=== PATIENT | female | born 1995 | race Two or more races ===

== ENCOUNTER 2016-09-15 00:36 | Emergency (ER) | payer SELFPAY ==
[2016-09-15] MEDS ORDERED: NORMAL SALINE 1000 ML 1,000 ML IV ONE (01:45)
--- NOTE | 2016-09-15 02:07 | ER Document Report ---
ED GI/ - General Mode of Arrival: Ambulatory Information source: Patient TRAVEL OUTSIDE OF THE [place] IN LAST 30 DAYS: No - HPI Patient complains to provider of: Abdominal pain Onset: Other - 09/13/2016 Timing/Duration: Intermittent, Worse Location: Epigastric, RUQ Associated symptoms: Nausea, Vomiting. denies: Dysuria, Radiates to back <EMMY CLARK - Last Filed: 09/15/16 02:20> <RONY GTZ - Last Filed: 09/15/16 05:14> - General Chief Complaint: Abdominal Pain Stated Complaint: ABDOMINAL PAIN Notes: Patient is a 21-year-old female presenting to the emergency department concerned of epigastric and right upper quadrant abdominal pain which has been intermittent for the past 2 days. Patient states that the pain normally comes in 30 minute episodes. Patient states tonight the pain began at approximately 2000, but never resolved. Patient states she was at a bonfire and had a s'more , and subsequently became nauseous and vomited. She was told that she had a gallstone while she was (delivered Apr 2016), but never had it rechecked after the . Patient denies any back pain, dysuria, or suprapubic pain. (EMMY CLARK) - Related Data Allergies/Adverse Reactions: No Known Allergies Allergy (Verified 04/18/16 21:33) Past Medical History - General Information source: Patient - Social History Smoking Status: Never Smoker Chew tobacco use (# tins/day): No Frequency of alcohol use: None Drug Abuse: None Family History: Reviewed & Not Pertinent Patient has suicidal ideation: No Patient has homicidal ideation: No Renal/ Medical History: Denies: Hx Peritoneal Dialysis - Immunizations Immunizations up to date: Yes Hx Diphtheria, Pertussis, Tetanus Vaccination: Yes <EMMY CLARK - Last Filed: 09/15/16 02:20> Review of Systems - Review of Systems Constitutional: No symptoms reported EENT: No symptoms reported Cardiovascular: No symptoms reported Respiratory: No symptoms reported Gastrointestinal: See HPI, Abdominal pain, Nausea, Vomiting Genitourinary: No symptoms reported Female Genitourinary: No symptoms reported Musculoskeletal: No symptoms reported Skin: No symptoms reported Hematologic/Lymphatic: No symptoms reported Neurological/Psychological: No symptoms reported -: Yes All other systems reviewed and negative <EMMY CLARK - Last Filed: 09/15/16 02:20> Physical Exam - Vital signs Interpretation: Normal - General General appearance: Alert - HEENT Head: Normocephalic, Atraumatic Eyes: Normal Pupils: PERRL - Respiratory Respiratory status: No respiratory distress Chest status: Nontender Breath sounds: Normal Chest palpation: Normal - Cardiovascular Rhythm: Regular Heart sounds: Normal auscultation Murmur: No - Abdominal Distension: No distension Bowel sounds: Normal Tenderness: Tender - Epigastric and RUQ tenderness to palpation.. No: Guarding , Rebound Organomegaly: No organomegaly - Back Back: Normal, Nontender - Extremities General upper extremity: Normal inspection, Nontender, Normal color, Normal ROM , Normal temperature General lower extremity: Normal inspection, Nontender, Normal color, Normal ROM , Normal temperature - Neurological Neuro grossly intact: Yes Cognition: Normal [place] Coma Scale Eye Opening: Spontaneous Sammi Coma Scale Verbal: Oriented [place] Coma Scale Motor: Obeys Commands Sammi Coma Scale Total: 15 Speech: Normal - Psychological Associated symptoms: Normal affect, Normal mood - Skin Skin Temperature: Warm Skin Moisture: Dry Skin Color: Normal <EMMY CLARK - Last Filed: 09/15/16 02:20> Course <EDUARDOEMMY - Last Filed: 09/15/16 02:20> - Laboratory Result Diagrams: 09/15/16 03:05 09/15/16 03:05 - Diagnostic Test Radiology reviewed: Reports reviewed <RONY GTZ - Last Filed: 09/15/16 05:14> - Re-evaluation Re-evalutation: 09/15/16 05:13 Patient with gallstones on ultrasound. No evidence for infection. Patient does have elevation of her LFTs. Patient is feeling better after fluids. Discuss consultation with surgeon and keeping the patient in the hospital for her symptoms. Patient states that she needs to get home to her 4-month-old would prefer to follow-up as an outpatient. Patient is able to take by mouth. Patient is advised to return immediately if she has any worsening or concerning symptoms including vomiting, abdominal pain and fever, or any other concerns. Understands agrees with plan. (RONY GTZ) - Vital Signs Vital signs: Temp Pulse Resp BP Pulse Ox 97.4 F 67 17 106/63 100 09/15/16 04:59 09/15/16 04:59 09/15/16 04:59 09/15/16 04:59 09/15/16 04:59 - Laboratory Laboratory results interpreted by me: 09/15/16 09/15/16 09/15/16 03:05 03:05 03:05 Seg Neutrophils % 79.9 H Creatinine 0.49 L Total Bilirubin 1.5 H AST 350 H ALT 198 H Alkaline Phosphatase 242 H Total Protein 8.3 H Urine Protein 30 H Urine Ketones 80 H Urine Urobilinogen 2.0 H Discharge <EMMY CLARK - Last Filed: 09/15/16 02:20> <RONY GTZ - Last Filed: 09/15/16 05:14> - Discharge Clinical Impression: Gallstones, Biliary colic Condition: Stable Disposition: HOME, SELF-CARE Instructions: Gallbladder Disease ([facility]), Low-Fat Diet ([facility]) Prescriptions: Ondansetron [Zofran Odt 4 mg Tablet] 1 - 2 tab PO Q4H PRN #15 tab.rapdis PRN Reason: For Nausea/Vomiting Oxycodone HCl/Acetaminophen [Percocet 5-325 mg Tablet] 1 - 2 tab PO Q4H PRN #15 tablet PRN Reason: Referrals: GAY SAPP MD [ACTIVE STAFF] - Follow up as needed Scribe Attestation: 09/15/16 05:14 I personally performed the services described in the documentation, reviewed and edited the documentation which was dictated to the scribe in my presence, and it accurately records my words and actions. (RONY GTZ) Scribe Documentation - Scribe Written by Scribe:: Emmy Clark 09/15/2016 0210 acting as scribe for :: Pamela <EMMY CLARK - Last Filed: 09/15/16 02:20>
[2016-09-15 03:16] LABS: ABSOLUTE MONOCYTES (AUTO) 0.4 10^3/uL (0.1-1.4); ABSOLUTE NEUT (AUTO) 5.8 10^3/uL (1.7-8.2); BASOPHILS % (AUTO) 0.3 % (0-2); EOSINOPHILS % (AUTO) 0.2 % (0-6); HEMATOCRIT 37.2 % (36.0-47.0); HGB HCT DIFFERENCE 1.8; LYMPHOCYTES % (AUTO) 13.7 % (13-45); MEAN CORPUSCULAR HEMOGLOBIN 30.1 pg (27.0-33.4); MEAN CORPUSCULAR HGB CONC 34.9 g/dL (32.0-36.0); MEAN CORPUSCULAR VOLUME 86 fl (80-97); MONOCYTES % (AUTO) 5.9 % (3-13); RED BLOOD COUNT 4.32 10^6/uL (3.72-5.28); RED CELL DISTRIBUTION WIDTH 13.3 % (11.5-14.0); SEGMENTED NEUTROPHILS % (AUTO) 79.9 % (42-78); WHITE BLOOD COUNT 7.3 10^3/uL (4.0-10.5)
[2016-09-15 03:18] LABS: APPEARANCE,URINE CLEAR; BILIRUBIN,URINE NEGATIVE (NEGATIVE); GLUCOSE, URINE NEGATIVE (NEGATIVE); KETONES,URINE 80 mg/dL (NEGATIVE); LEUKOCYTE ESTERASE,URINE NEGATIVE (NEGATIVE); NITRITE,URINE NEGATIVE (NEGATIVE); PROTEIN,URINE 30 mg/dL (NEGATIVE)
[2016-09-15 03:30] LABS: ALANINE AMINOTRANSFERASE 198 U/L (9-52); ALBUMIN 4.9 g/dL (3.5-5.0); ALKALINE PHOSPHATASE 242 U/L (38-126); ANION GAP 15 (5-19); ASPARTATE AMINO TRANSFERASE 350 U/L (14-36); BILIRUBIN,TOTAL 1.5 mg/dL (0.2-1.3); BLOOD UREA NITROGEN 10 mg/dL (7-20); CALCIUM 9.8 mg/dL (8.4-10.2); CARBON DIOXIDE 24 mmol/L (22-30); CHLORIDE 105 mmol/L (98-107); CREATININE RESULT 0.49 mg/dL (0.52-1.25); GLUCOSE 105 mg/dL (75-110); POTASSIUM 4.3 mmol/L (3.6-5.0); SODIUM 144.3 mmol/L (137-145); TOTAL PROTEIN 8.3 g/dL (6.3-8.2)
[2016-09-15 03:56] LABS: LIPASE 198.3 U/L (23-300)
[2016-09-15] MEDS ORDERED: 1/2 NORMAL SALINE 1,000 ML IV ONE (04:11)
[2016-09-15 05:00] VITALS: BP 106/63
== END 2016-09-15 04:59 | disposition home or self-care (01) ==
LOC: ER 00:36
DX: K80.80 Other cholelithiasis without obstruction (principal); K80.50 Calculus of bile duct without cholangitis or cholecystitis without obstruction; R10.13 Epigastric pain; R10.11 Right upper quadrant pain; R11.2 Nausea with vomiting, unspecified
CPT/HCPCS: 99284; 36415; 84702; 83690; 85025; 80053; 81001; 76705; J7030

== ENCOUNTER 2017-10-03 15:35 | Emergency (ER) | payer SELFPAY ==
[2017-10-03] MEDS ORDERED: KETOROLAC TROMETHAMINE 60 MG/2 ML SDV IM ONE (17:38)
[2017-10-03] MEDS ORDERED: ONDANSETRON 4 MG TAB.RAPDIS PO ONE (17:48)
[2017-10-03 18:12] LABS: ABSOLUTE LYMPHOCYTES (AUTO) 1.3 10^3/uL (0.5-4.7); ABSOLUTE MONOCYTES (AUTO) 0.7 10^3/uL (0.1-1.4); ABSOLUTE NEUT (AUTO) 8.1 10^3/uL (1.7-8.2); BASOPHILS % (AUTO) 0.4 % (0-2); EOSINOPHILS % (AUTO) 0.1 % (0-6); HEMOGLOBIN 14.3 g/dL (12.0-15.5); LYMPHOCYTES % (AUTO) 12.4 % (13-45); MEAN CORPUSCULAR HEMOGLOBIN 30.6 pg (27.0-33.4); MEAN CORPUSCULAR HGB CONC 34.1 g/dL (32.0-36.0); MEAN CORPUSCULAR VOLUME 90 fl (80-97); MONOCYTES % (AUTO) 6.6 % (3-13); PLATELET COUNT 372 10^3/uL (150-450); RED BLOOD COUNT 4.68 10^6/uL (3.72-5.28); RED CELL DISTRIBUTION WIDTH 13.1 % (11.5-14.0); SEGMENTED NEUTROPHILS % (AUTO) 80.5 % (42-78); TOTAL CELLS COUNTED % (AUTO) 100 %; WHITE BLOOD COUNT 10.1 10^3/uL (4.0-10.5)
[2017-10-03 18:30] LABS: APPEARANCE,URINE CLEAR; BILIRUBIN,URINE SMALL (NEGATIVE); COLOR,URINE YELLOW; GLUCOSE, URINE NEGATIVE (NEGATIVE); KETONES,URINE 80 mg/dL (NEGATIVE); LEUKOCYTE ESTERASE,URINE TRACE (NEGATIVE); NITRITE,URINE NEGATIVE (NEGATIVE); PROTEIN,URINE 30 mg/dL (NEGATIVE)
[2017-10-03 18:31] LABS: ALANINE AMINOTRANSFERASE 405 U/L (9-52); ALBUMIN 4.8 g/dL (3.5-5.0); ALKALINE PHOSPHATASE 154 U/L (38-126); ANION GAP 12 (5-19); ASPARTATE AMINO TRANSFERASE 521 U/L (14-36); BILIRUBIN,DIRECT 2.1 mg/dL (0.0-0.4); BILIRUBIN,TOTAL 3.2 mg/dL (0.2-1.3); BLOOD UREA NITROGEN 8 mg/dL (7-20); CALCIUM 9.8 mg/dL (8.4-10.2); CARBON DIOXIDE 26 mmol/L (22-30); CHLORIDE 105 mmol/L (98-107); GLUCOSE 92 mg/dL (75-110); LIPASE 107.7 U/L (23-300); POTASSIUM 4.4 mmol/L (3.6-5.0); SODIUM 142.8 mmol/L (137-145); TOTAL PROTEIN 8.4 g/dL (6.3-8.2)
[2017-10-03] MEDS ORDERED: NORMAL SALINE 1000 ML 1,000 ML IV ONE (20:29)
--- NOTE | 2017-10-03 20:30 | ER Document Report ---
ED GI/ - General Chief Complaint: Abdominal Pain Stated Complaint: ABDOMINAL PAIN Time Seen by Provider: 10/03/17 17:38 Notes: Patient is a 22-year-old female that comes emergency department for chief complaint of right upper quadrant pain and vomiting. She states she was previously diagnosed with gallstones, she states she was unable to follow-up with the surgical clinic yet because of the down payment, she states that she is actually doing fine until yesterday when she began to have constant pain. Pain was constant severe and so she was medicated in triage after arrival at the hospital. She denies fever or chills, she is moving her bowels normally, she denies any surgeries, she takes no daily medications. LMP within the past month. TRAVEL OUTSIDE OF THE [place] IN LAST 30 DAYS: No - Related Data Allergies/Adverse Reactions: No Known Allergies Allergy (Verified 04/18/16 21:33) Past Medical History - General Information source: Patient - Social History Smoking Status: Former Smoker Chew tobacco use (# tins/day): No Frequency of alcohol use: None Drug Abuse: None Lives with: Family Family History: Reviewed & Not Pertinent Patient has suicidal ideation: No Patient has homicidal ideation: No - Medical History Medical History: Negative Renal/ Medical History: Denies: Hx Peritoneal Dialysis Surgical Hx: Negative - Immunizations Immunizations up to date: Yes Hx Diphtheria, Pertussis, Tetanus Vaccination: Yes Review of Systems - Review of Systems Constitutional: No symptoms reported EENT: No symptoms reported Cardiovascular: No symptoms reported Respiratory: No symptoms reported Gastrointestinal: See HPI Genitourinary: No symptoms reported Female Genitourinary: No symptoms reported Musculoskeletal: No symptoms reported Skin: No symptoms reported Hematologic/Lymphatic: No symptoms reported Neurological/Psychological: No symptoms reported Physical Exam - Vital signs Vitals: Temp Pulse Resp BP Pulse Ox 98.5 F 72 14 119/71 100 10/03/17 16:23 10/03/17 16:23 10/03/17 16:23 10/03/17 16:23 10/03/17 16:23 - General General appearance: Appears well In distress: None - HEENT Head: Normocephalic, Atraumatic Eyes: Normal Conjunctiva: Normal Extraocular movements intact: Yes Eyelashes: Normal Pupils: PERRL Mouth/Lips: Normal Mucous membranes: Normal Pharynx: Normal Neck: Normal - Respiratory Respiratory status: No respiratory distress Breath sounds: Normal. No: Decreased air movement, Wheezing - Cardiovascular Rhythm: Regular. No: Tachycardia Heart sounds: Normal auscultation, S1 appreciated, S2 appreciated - Abdominal Inspection: Normal Distension: No distension Tenderness: Tender - There is tenderness in the right upper abdomen on exam, no severe tenderness or guarding, remaining abdomen is unremarkable. - Back Back: Normal, Nontender. No: Tender, CVA tenderness - Extremities General upper extremity: Normal inspection, Nontender, Normal ROM, Normal strength General lower extremity: Normal inspection, Nontender, Normal ROM, Normal strength - Neurological Neuro grossly intact: Yes Cognition: Normal Orientation: AAOx4 Sammi Coma Scale Eye Opening: Spontaneous [place] Coma Scale Verbal: Oriented Sammi Coma Scale Motor: Obeys Commands Sammi Coma Scale Total: 15 Speech: Normal Motor strength normal: LUE, RUE, LLE, RLE Sensory: Normal - Psychological Associated symptoms: Normal affect, Normal mood - Skin Skin Temperature: Warm Skin Moisture: Dry Skin Color: Normal Course - Re-evaluation Re-evalutation: Patient is not in any distress on examination, she does have right upper quadrant tenderness, abdomen is benign otherwise. Vital signs unremarkable. CBC unremarkable, and history is concerning showing elevating LFTs and bilirubin including direct bilirubin. Alkaline phosphatase is elevated as well. Lipase is normal however. Ultrasound showing cholelithiasis without cholecystitis or ductal dilatation. I called and spoke with Dr. Ventura, surgeon family practitioner, he states he will evaluate the patient. Dr. Ventura recommends admission to his service, request for MRCP to be performed as well. We have MRI tonight available, I called and spoke with him, they state they are able to perform this tonight instead of tomorrow morning. Prophylactically covered with Zosyn, giving IV fluids, patient has been kept n.p.o., she was n.p.o. already because she cannot eat anything without vomiting. 10/04/17 MRI showing choledocholithiasis with obstructing 0.5 cm stone in the common bile duct distally. Unfortunately patient will need an ERCP. I called Dr. Ventura back and spoke with him, I will call for transfer because we do not have gastroenterology available for ERCP over the next several days. I discussed this with patient and family in detail, they state understanding and agreement. 10/04/[address] Hernandez, hospitalist at [facility], patient will be accepted for transfer. They do not have a bed available at this time, they are expecting a bed to become available this morning. 10/04/17 06:50 Patient did have repeat pain and nausea, she is medicated, after this she became comfortable again. Patient has been sleeping peacefully without any further complaints. Still pending room assignment - Vital Signs Vital signs: Temp Pulse Resp BP Pulse Ox 97.4 F 70 14 110/77 100 10/04/17 03:00 10/04/17 03:00 10/03/17 16:23 10/04/17 03:00 10/04/17 03:00 - Laboratory Result Diagrams: 10/03/17 17:45 10/03/17 17:45 Laboratory results interpreted by me: 10/03/17 10/03/17 10/03/17 17:45 17:45 17:45 Seg Neutrophils % 80.5 H Lymphocytes % 12.4 L Total Bilirubin 3.2 H Direct Bilirubin 2.1 H AST 521 H ALT 405 H Alkaline Phosphatase 154 H Total Protein 8.4 H Urine Protein 30 H Urine Ketones 80 H Urine Bilirubin SMALL H Urine Urobilinogen 4.0 H Ur Leukocyte Esterase TRACE H Discharge - Discharge Clinical Impression: Choledocholithiasis, Elevated LFTs, Elevated bilirubin Vomiting Qualifiers: Vomiting type: unspecified Vomiting Intractability: non-intractable Nausea presence: with nausea Qualified Code(s): R11.2 - Nausea with vomiting, unspecified Condition: Stable Disposition: [facility]
--- NOTE | 2017-10-03 20:43 | RADIOLOGY REPORT (SQ) ---
EXAM DESCRIPTION: U/S ABDOMEN LIMITED W/O DOP COMPLETED DATE/TIME: 10/03/2017 8:02 pm REASON FOR STUDY: ruq pain COMPARISON: 09/15/2016 TECHNIQUE: Dynamic and static grayscale images acquired of the abdomen and recorded on PACS. Rachel chopra selected color Doppler and spectral images recorded. LIMITATIONS: None. FINDINGS: PANCREAS: No masses. Visualized pancreatic duct normal caliber. LIVER: 13.4 cm. Normal echotexture. LIVER VASCULATURE: Normal directional flow of the main portal vein and hepatic veins. GALLBLADDER: The gallbladder is somewhat distended. Multiple stones are seen. ULTRASOUND-DETECTED DESAI'S SIGN: Negative. INTRAHEPATIC DUCTS AND COMMON DUCT: CBD and intrahepatic ducts normal caliber. No filling defects. INFERIOR VENA CAVA: Normal flow. AORTA: No aneurysm. RIGHT KIDNEY: Normal size, 10 cm. Normal echogenicity. No solid or suspicious masses. No hydronephro sis. No calcifications. PERITONEAL AND RIGHT PLEURAL SPACE: No ascites or effusions. OTHER: No other significant findings. IMPRESSION: Cholelithiasis with normal common bile duct. There is no wall thickening or pericholecy stic fluid. TECHNICAL DOCUMENTATION: JOB ID: [id number] [employer]- All Rights Reserved Reading location - IP/workstation name: [email or web address]
[2017-10-03] MEDS ORDERED: PIPERACILLIN/TAZOBACTAM 3.375 GM VIAL IV ONE (21:51)
--- NOTE | 2017-10-03 22:38 | PDOC H&P ---
History of Present Illness Admission Date/PCP: 10/03/17 Patient complains of: Epigastric and RUQ pains with N/V History of Present Illness: LIN DEL ROSARIO is a 22 year old female who is known to have gallstones started to have epigastric/RUQ pains with N/V since yesterday. Denies fatty food yesterday. Denies fever/chills. US ahowed gallstones with normal CBD. LFT's elevated. She was seen in ED 09/15/17 for Epigastric/RUQ pains which subsided and patient sent home to be followed in the surgical clinic but failed to go because of financial reasons. LFT's then slightly elevated. Past Medical History GI Medical History: Reports: Other - gallstones Past Surgical History Past Surgical History: Reports: None Social History Smoking Status: Former Smoker Frequency of Alcohol Use: None Hx Recreational Drug Use: No Family History Family History: Reviewed & Not Pertinent Parental Family History Reviewed: Yes - mother with DM Children Family History Reviewed: No Sibling(s) Family History Reviewed.: No Medication/Allergy Home Medications: No Home Medications 10/03/17 Allergies/Adverse Reactions: No Known Allergies Allergy (Verified 04/18/16 21:33) Review of Systems Constitutional: PRESENT: other - no fever/chills Eyes: PRESENT: other - no visual/hearing changes Respiratory: PRESENT: other - no dyspnea Gastrointestinal: PRESENT: abdominal pain, nausea, vomiting Genitourinary: PRESENT: other - no dysuria Musculoskeletal: PRESENT: other - no muscle weakness Integumentary: PRESENT: other - denies pruritus Neurological: PRESENT: other - occasionally gets light headed with severe N/V Endocrine: PRESENT: other - no polyuria Hematologic/Lymphatic: PRESENT: other - no easy bruising Physical Exam Vital Signs: Temp Pulse Resp BP Pulse Ox 98.5 F 72 14 119/71 100 10/03/17 16:23 10/03/17 16:23 10/03/17 16:23 10/03/17 16:23 10/03/17 16:23 Intake & Output 10/02/17 10/03/17 10/04/17 06:59 06:59 06:59 Weight 69 kg General appearance: PRESENT: no acute distress Head exam: PRESENT: atraumatic Eye exam: PRESENT: conjunctiva pink Mouth exam: PRESENT: moist Neck exam: PRESENT: full ROM Respiratory exam: PRESENT: clear to auscultation scott Cardiovascular exam: PRESENT: RRR Pulses: PRESENT: normal radial pulses Vascular exam: PRESENT: normal capillary refill GI/Abdominal exam: PRESENT: tenderness - RUQ/Epigastrium Rectal exam: PRESENT: deferred Extremities exam: PRESENT: full ROM Musculoskeletal exam: PRESENT: ambulatory Neurological exam: PRESENT: alert, oriented to person, oriented to place, oriented to time, oriented to situation Psychiatric exam: PRESENT: appropriate affect Skin exam: PRESENT: normal color, warm Results Laboratory Results: 10/03/17 17:45 10/03/17 17:45 10/03/17 10/03/17 10/03/17 17:45 17:45 17:45 WBC 10.1 RBC 4.68 Hgb 14.3 Hct 42.0 MCV 90 MCH 30.6 MCHC 34.1 RDW 13.1 Plt Count 372 Seg Neutrophils % 80.5 H Lymphocytes % 12.4 L Monocytes % 6.6 Eosinophils % 0.1 Basophils % 0.4 Absolute Neutrophils 8.1 Absolute Lymphocytes 1.3 Absolute Monocytes 0.7 Absolute Eosinophils 0.0 Absolute Basophils 0.0 Sodium 142.8 Potassium 4.4 Chloride 105 Carbon Dioxide 26 Anion Gap 12 BUN 8 Creatinine 0.55 Est GFR ( Amer) > 60 Est GFR (Non-Af Amer) > 60 Glucose 92 Calcium 9.8 Total Bilirubin 3.2 H AST 521 H ALT 405 H Alkaline Phosphatase 154 H Total Protein 8.4 H Albumin 4.8 Lipase 107.7 Urine Color YELLOW Urine Appearance CLEAR Urine pH 6.0 Ur Specific [place] 1.030 Urine Protein 30 H Urine Glucose (UA) NEGATIVE Urine Ketones 80 H Urine Blood NEGATIVE Urine Nitrite NEGATIVE Ur Leukocyte Esterase TRACE H Urine WBC (Auto) 1 Urine RBC (Auto) 5 Impressions: Abdomen Ultrasound 10/03/17 18:41 IMPRESSION: Cholelithiasis with normal common bile duct. There is no wall thickening or pericholecystic fluid. Assessment & Plan - Diagnosis (1) Cholelithiasis Qualifiers: Cholelithiasis location: gallbladder Cholecystitis acuity: chronic Is this a current diagnosis for this admission?: Yes (2) Elevated LFTs Is this a current diagnosis for this admission?: Yes - Time Time Spent: 30 to 50 Minutes - Inpatient Certification Medical Necessity: Need For IV Fluids, Need for Pain Control, Need for IV Antibiotics, Need for Surgery, Risk of Complication if Not Cared For in Hospital - Plan Summary Plan Summary: 1) Keep NPO and hydrate 2) Repeat CBC, LFTs in am 3) If LFTs still elevated possible MRCP vs ERCP 4) If LFTs down possible lap [place] with CBD cholangiogram 5) Start IV antibiotics
--- NOTE | 2017-10-04 00:21 | RADIOLOGY REPORT (SQ) ---
EXAM DESCRIPTION: MRI ABDOMEN WITHOUT CLINICAL HISTORY: 22 years Female, MRCP COMPARISON: Ultrasound, same day, report only. TECHNIQUE: Conventional noncontrast MRCP. FINDINGS: Small layered cholelithiasis with approximately three ovoid stones measuring up to 0.7 cm each. Common duct diameter is 1.1 cm. 0.5 cm ovoid filling defect of the distal common bile duct likely due to ductal stone at the sphincter of Oddi. Cystic duct diameter 0.4 cm. Mildly hydropic gallbladder. Mild intrahepatic ductal enlargement. Pancreatic duct is nonvisualized, likely decompressed. Inferior chest and unenhanced intra-abdominal structures appear otherwise unremarkable. IMPRESSION: 1. Choledocholithiasis with obstruction pattern involves a likely 0.5 cm stone at the distal common bile duct, 1.1 cm diameter enlargement of the common bile duct, and mild intrahepatic ductal enlargement. 2. Cholelithiasis. No MR evidence of cholecystitis.
[2017-10-04] MEDS ORDERED: NORMAL SALINE 1000 ML 1,000 ML IV PRN (00:39)
[2017-10-04] MEDS ORDERED: ONDANSETRON HCL INJ/PF 4 MG/2 ML SDV IV ONE ×2 (00:39→06:43)
[2017-10-04] MEDS ORDERED: MORPHINE SULFATE 10 MG/ML INJ IV ONE (00:39)
[2017-10-04] MEDS ORDERED: PIPERACILLIN/TAZOBACTAM 3.375 GM VIAL IV SCH (05:00)
--- NOTE | 2017-10-04 14:27 | ER Document Report ---
Doctor's Note Notes: 10/04/17 14:26 Rounds: Patient is awaiting transport to [place]. She says that she is quite comfortable and not having much pain at all now. No nausea or vomiting currently. Resting quietly. Her abdomen is soft but tender in the right upper quadrant. Minimal guarding. No rebound. Vital signs are all essentially normal. Patient appears to be medically stable for transfer. Thad Freed MD
[2017-10-04 14:29] VITALS: BP 116/58
== END 2017-10-04 15:00 | disposition short-term general hospital (02) ==
LOC: ER 15:35
DX: K80.50 Calculus of bile duct without cholangitis or cholecystitis without obstruction (principal); R79.89 Other specified abnormal findings of blood chemistry; E80.7 Disorder of bilirubin metabolism, unspecified; R11.2 Nausea with vomiting, unspecified; R10.11 Right upper quadrant pain; Z87.891 Personal history of nicotine dependence
CPT/HCPCS: 36415; 83690; 85025; 81025; 80053; 81001; 74181; 76705; J1885; S0119; J2270; J2405; J7030; J2543

== ENCOUNTER → 2018-05-21 | Outpatient (CLI) | payer SELFPAY ==
--- NOTE | 2018-05-21 15:26 | RADIOLOGY REPORT (SQ) ---
EXAM DESCRIPTION: U/S OB 14+ TRNABD 1GES W/O DOP COMPLETED DATE/TIME: 05/21/2018 2:13 pm REASON FOR STUDY: ENCTR FOR SUPERVISION OF OTHER NORMAL 2ND TRIMESTER (Z34.82) Z34.82 ENC OUNTER FOR SUPRVSN OF NORMAL , SECOND TRI EGA 19 weeks 1 day COMPARISON: None. TECHNIQUE: Static and Dynamic grayscale imaging performed of gravid uterus using transabdominal appr oach. Additional selected color Doppler and spectral images recorded. All stored on PACS. LIMITATIONS: None. FINDINGS: FETUSES SEEN:1 EGA: 19 weeks 1 day Calculated using BPD,FL,HC,AC documented on images. No discrepancy with clinical dates. NIRU: 10/14/2018 EFW: 282+/- 42 grams PERCENTILE: Not applicable. Fetus less than or equal to 20 weeks gestation. LVP: 4.3 CM PLACENTA: ANTERIOR GRADE: I PRESENTATION: Cephalic. ANATOMY: HEART RATE: 158 beats per minute. FOUR CHAMBER HEART: Visualized. THREE VESSEL CORD: Yes. CORD INSERTION: Visualized. KIDNEYS AND BLADDER: Visualized. Appear normal. STOMACH: Visualized. Appears normal. SPINE: Normal as visualized. BRAIN AND LATERAL VENTRICLES: Visualized. Appear normal. OTHER: No other significant finding. MATERNAL ADNEXA: Maternal ovaries not visualized. CERVICAL LENGTH: 5 cm. Closed. OTHER: No other significant finding. IMPRESSION: LIVING INTRAUTERINE . ESTIMATED GESTATIONAL AGE 19 weeks 1 day. NO VISUALIZED ANOMALIES. Trimester of : Second trimester - 13 weeks 1 day to 27 weeks 6 days. TECHNICAL DOCUMENTATION: JOB ID: [id number] [employer]- All Rights Reserved Reading location - IP/workstation name: [email or web address]
== END ==
LOC: RAD 12:44
PROVIDERS: ATTEND Nurse Practitioner
DX: Z34.82 Encounter for supervision of other normal pregnancy, second trimester (principal)
CPT/HCPCS: 76805

== ENCOUNTER → 2018-06-02 | Outpatient (CLI) | payer SELFPAY ==
[2018-06-02 19:00] LABS: ALANINE AMINOTRANSFERASE 34 U/L (9-52); ALBUMIN 3.6 g/dL (3.5-5.0); ALKALINE PHOSPHATASE 125 U/L (38-126); ANION GAP 10 (5-19); ASPARTATE AMINO TRANSFERASE 24 U/L (14-36); BILIRUBIN,DIRECT 0.2 mg/dL (0.0-0.4); BILIRUBIN,TOTAL 0.5 mg/dL (0.2-1.3); BLOOD UREA NITROGEN 4 mg/dL (7-20); CALCIUM 8.8 mg/dL (8.4-10.2); CARBON DIOXIDE 25 mmol/L (22-30); CHLORIDE 104 mmol/L (98-107); GLUCOSE 79 mg/dL (75-110); POTASSIUM 3.9 mmol/L (3.6-5.0); SODIUM 138.7 mmol/L (137-145); TOTAL PROTEIN 6.8 g/dL (6.3-8.2); URIC ACID 2.6 mg/dL (2.5-6.2)
[2018-06-04 13:03] LABS: 24 HOUR URINE PROTEIN RESULT 282 mg/day (42-225); URINE PROTEIN 17.2 mg/dL (<12)
== END ==
LOC: OCH 18:26
DX: O15.9 Eclampsia, unspecified as to time period (principal)
CPT/HCPCS: 36415; 80053; 83615; 84156; 84550

== ENCOUNTER 2018-10-04 04:53 | Outpatient (CLI) | payer SELFPAY ==
[2018-10-04 05:25] LABS: APPEARANCE,URINE CLEAR; BILIRUBIN,URINE NEGATIVE (NEGATIVE); COLOR,URINE YELLOW; GLUCOSE, URINE NEGATIVE (NEGATIVE); KETONES,URINE NEGATIVE (NEGATIVE); LEUKOCYTE ESTERASE,URINE NEGATIVE (NEGATIVE); NITRITE,URINE NEGATIVE (NEGATIVE); PROTEIN,URINE NEGATIVE (NEGATIVE); URINE SPECIFIC GRAVITY 1.006
[2018-10-04 05:49] LABS: URINE AMPHETAMINES SCREEN NEGATIVE; URINE BARBITURATES SCREEN NEGATIVE; URINE BENZODIAZEPINES SCREEN NEGATIVE; URINE COCAINE SCREEN NEGATIVE; URINE MARIJUANA (THC) SCREEN NEGATIVE; URINE METHADONE SCREEN NEGATIVE; URINE PHENCYCLIDINE SCREEN NEGATIVE
--- NOTE | 2018-10-04 06:11 | Non Stress Test Report ---
Non Stress Test Datetime Report Generated by CPN: 10/04/2018 06:11 DEMOGRAPHIC EGA NST: 38.4 INDICATION Indication for Study: Ordered by Provider MONITORING Monitor Explained: Monitor Explained; Test Explained; Patient Verbalized Understanding Time on Monitor: 10/04/2018 05:11 Time off Monitor: 10/04/2018 05:48 NST Duration: 37 NST INTERVENTIONS NST Interventions: PO Hydration Physician Notified NST: Dr. Younger BABY A: [id number] BABY A Movement : Present Contraction Frequency : 4-6 FHR Baseline : 140 Accelerations : 15X15 Decelerations : None Variability : Moderate 6-25bpm NST Review: Meets Criteria for Reactive NST NST Review and Verified By : Ashly Azar RN NST Results: Reactive NST REPORT Report Trigger: Send Report
== END 2018-10-04 08:20 | disposition home or self-care (01) ==
LOC: LC 04:53
PROVIDERS: ATTEND Obstetrics & Gynecology
PROC: 4A1HXCZ Monitoring of Products of Conception, Cardiac Rate, External Approach (ICD-10-PCS; principal; 2018-10-04)
DX: O47.1 False labor at or after 37 completed weeks of gestation (principal); Z3A.38 38 weeks gestation of pregnancy
CPT/HCPCS: 80307; 81005

== ENCOUNTER 2018-10-04 10:25 | Inpatient (IN) | payer SELFPAY ==
[2018-10-04] MEDS ORDERED: DEXTROSE 5%-LACTATED RINGERS 1,000 ML IV PRN (10:39)
--- NOTE | 2018-10-04 10:57 | Admission Physical ---
Datetime Report Generated by CPN: 10/04/2018 10:56 CURRENT ADMISSION Chief Complaint: Uterine Contractions Admit Impression : Term, Intrauterine ; Intact Membranes Admit Plan: Admit to Unit; Initiate Labor Protocol ALLERGIES Medication Allergies: No Medication Allergies: No Known Allergies (10/04/2018) Latex: No Latex Allergies Food Allergies: none Environmental Allergies: none OBSTETRICAL HISTORY EDC: 10/14/2018 00:00 : 2 Para: 1 Term: 0 : 1 SAB: 0 IAB: 0 Ectopic: 0 Livin Cesareans: 0 VBACs: 0 Multiple Births: 0 Gestational Diabetes: No Rh Sensitization: No Incompetent Cervix: No BALTA: No Infertility: No ART Treatment: No Uterine Anomaly: No IUGR: No Hx Previous C/S: No Macrosomia: No Hx Loss/Stillborn: No PIH: No Hx : No Placenta Previa/Abruption: No Depression/PP Depression: No PTL/PROM: Yes Post Hemorrhage: No Current Procedures: Ultrasound; NST Obstetrical History Comments: g1- IOL for Pre-e at 35 weeks, GDM g2- current SEE RECORDS Alcohol: No Marijuana : No Cocaine: No Other Illicit Drugs: No Cigarettes: Never Smoker. [id number] MEDICAL HISTORY Diabetes: No Blood Transfusion: No Pulmonary Disease (Asthma, TB): No Breast Disease: No Hypertension: No Occupational Therapy Program Director Surgery: No Heart Disease: No Hosp/Surgery: Yes Autoimmune Disorder: No Anesthetic Complications: No Kidney Disease: No Abnormal Pap Smear: No Neuro/Epilepsy: No Psychiatric Disorders: No Other Medical Diseases: No Hepatitis/Liver Disease: No Significant Family History: No Varicosities/Phlebitis: No Trauma/Violence : No Thyroid Dysfunction: No Medical History Comments: gallbladder removed 2017, hx of pree and GDM INFECTIOUS HISTORY Gonorrhea: No Genital Herpes: No Chlamydia: Yes Tuberculosis: No Syphilis: No Hepatitis: No HIV/AIDS Exposure: No Rash or Viral Illness: No HPV: No Infectious History Comments: chlamydia 05/15/18 [facility] 09/04/2018 PHYSICAL EXAM General: Normal HEENT: Normal Neurologic: Normal Thyroid: Normal Heart: Normal Lungs: Normal Breast: Normal Back: Normal Abdomen: Normal Genitourinary Exam: Normal Extremities: Normal DTRs: Normal Pelvic Type: Adequate Vital Signs: Reviewed; Within Normal Limits VAGINAL EXAM Dilatation: 6 Effacement: 90 Station: -1 MEMBRANES Membranes: Intact FETUS A EGA: 38.4 Monitoring: External US FHR- Baseline: 150 Variability: Moderate 6-25bpm Accelerations: 15X15 Decelerations: None FHR Category: Category I Admit Comment: Pt comes back to L_D unit for a second labor check c/o increasing contractions. Denies SROM, states having some bloody show. at 38+ wks. GBS negative. VE /-1, vtx. Pt desires to labor naturally. Plan to admit and give labor support, anticipate . Attending MD is Dr Pena. PLANS FOR LABOR AND DELIVERY Labor and Delivery: None Pain Management: Natural Feeding Preference: Breast Benefit of Breast Feed Discussed: Yes Circumcision: Yes INFORMED CONSENT Assignment: Amy Pena MD Signature: with User ID: Willow : with User ID: Willow
[2018-10-04] MEDS ORDERED: LIDOCAINE 1% INJ-PF (10 MG/ML) 30 ML SDV ONE (11:23)
[2018-10-04] MEDS ORDERED: MISOPROSTOL 0.2 MG TABLET ONE (11:23)
[2018-10-04] MEDS ORDERED: OXYTOCIN/NORMAL SALINE 20 UNIT/1,000 ML RTUINJ ONE (11:24)
[2018-10-04 12:12] LABS: ABSOLUTE LYMPHOCYTES (AUTO) 1.1 10^3/uL (0.5-4.7); ABSOLUTE MONOCYTES (AUTO) 0.5 10^3/uL (0.1-1.4); ABSOLUTE NEUT (AUTO) 5.8 10^3/uL (1.7-8.2); BASOPHILS % (AUTO) 0.4 % (0-2); EOSINOPHILS % (AUTO) 0.2 % (0-6); HEMATOCRIT 34.2 % (36.0-47.0); HEMOGLOBIN 11.7 g/dL (12.0-15.5); LYMPHOCYTES % (AUTO) 15.2 % (13-45); MEAN CORPUSCULAR HEMOGLOBIN 29.5 pg (27.0-33.4); MEAN CORPUSCULAR HGB CONC 34.2 g/dL (32.0-36.0); MEAN CORPUSCULAR VOLUME 86 fl (80-97); MONOCYTES % (AUTO) 6.2 % (3-13); PLATELET COUNT 153 10^3/uL (150-450); RED BLOOD COUNT 3.96 10^6/uL (3.72-5.28); RED CELL DISTRIBUTION WIDTH 14.6 % (11.5-14.0); TOTAL CELLS COUNTED % (AUTO) 100 %; WHITE BLOOD COUNT 7.4 10^3/uL (4.0-10.5)
[2018-10-04] MEDS ORDERED: CITRIC ACID/SODIUM CITRATE ORAL SOLN 15 ML UDCUP ONE (14:40)
[2018-10-04] MEDS ORDERED: CEFAZOLIN 2 GM/D5W RTU 2 GM/50 ML RTUPB IV ONE (14:40)
[2018-10-04] MEDS ORDERED: CEFAZOLIN SODIUM 2 GM in DEXTROSE 5%-WATER 50 ML IV PRN (14:41)
[2018-10-04] MEDS ORDERED: CITRIC ACID/SODIUM CITRATE ORAL SOLN 15 ML UDCUP PO ONE (14:43)
[2018-10-04] MEDS ORDERED: PROPOFOL INJ 200 MG/20 ML VIAL IV ONE (14:45)
[2018-10-04] MEDS ORDERED: OXYTOCIN 10 UNIT/ML VIAL ONE (14:45)
[2018-10-04] MEDS ORDERED: OXYCODONE-ACETAMINOPHEN 5-325 MG TABLET PO PRN ×3 (14:46→15:22)
[2018-10-04] MEDS ORDERED: EPHEDRINE SULFATE INJ 50 MG/1 ML AMPULE ONE (14:46)
[2018-10-04] MEDS ORDERED: PROMETHAZINE HCL INJ 25 MG/1 ML VIAL IV PRN ×3 (14:46→15:22)
[2018-10-04] MEDS ORDERED: RINGERS SOLUTION,LACTATED 1,000 ML IV PRN (14:46)
[2018-10-04] MEDS ORDERED: DIPH/PERTUSS(ACELL)/TETANUS VAC/PF 0.5 ML SYR (>=10YO) IM PRN (14:46)
[2018-10-04] MEDS ORDERED: OXYTOCIN/NORMAL SALINE 20 UNIT/1,000 ML RTUINJ IV PRN (14:46)
[2018-10-04] MEDS ORDERED: MIDAZOLAM 2 MG/2 ML INJ ONE (14:46)
[2018-10-04] MEDS ORDERED: SIMETHICONE 80 MG TAB.CHEW PO PRN (14:46)
[2018-10-04] MEDS ORDERED: ACETAMINOPHEN 1,000 MG/100 ML RTUPB IV PRN (14:46)
[2018-10-04] MEDS ORDERED: FENTANYL CITRATE INJ/PF 100 MCG/2 ML AMPUL ONE (14:46)
[2018-10-04] MEDS ORDERED: MEASLES,MUMPS&RUBELLA VACC/PF 0.5 ML VIAL SUBCUT PRN (14:46)
[2018-10-04] MEDS ORDERED: ACETAMINOPHEN 325 MG TABLET PO PRN (14:46)
[2018-10-04] MEDS ORDERED: HYDROMORPHONE HCL INJ/PF 2 MG/ML AMPULE IV PRN (14:46)
[2018-10-04] MEDS ORDERED: ONDANSETRON HCL INJ/PF 4 MG/2 ML SDV ONE (15:04)
[2018-10-04] MEDS ORDERED: ACETAMINOPHEN 1,000 MG/100 ML RTUPB IV ONE (15:04)
[2018-10-04] MEDS ORDERED: METHYLERGONOVINE MALEATE INJ/PF 0.2 MG/1 ML AMPULE ONE (15:04)
[2018-10-04] MEDS ORDERED: KETOROLAC TROMETHAMINE INJ/PF 30 MG/1 ML SDV ONE (15:04)
[2018-10-04] MEDS ORDERED: ONDANSETRON HCL INJ/PF 4 MG/2 ML SDV IV PRN (15:22)
[2018-10-04] MEDS ORDERED: DIPHENHYDRAMINE HCL 50 MG/ML VIAL IV PRN (15:22)
[2018-10-04] MEDS ORDERED: FENTANYL CITRATE INJ/PF 100 MCG/2 ML AMPUL IV PRN ×3 (15:22)
[2018-10-04] MEDS ORDERED: MEPERIDINE HCL/PF INJ 25 MG/1 ML DISP.SYRIN IV PRN (15:22)
--- NOTE | 2018-10-04 15:49 | Operative Report ---
Operative Report DATE OF SURGERY: 10/04/18 PREOPERATIVE DIAGNOSIS: Face presentation POSTOPERATIVE DIAGNOSIS: Same mentum posterior OPERATION: via low transverse uterine incision SURGEON: LISBETH CASAREZ ANESTHESIA: Spinal TISSUE REMOVED OR ALTERED: Placenta COMPLICATIONS: None ESTIMATED BLOOD LOSS: 250 cc INTRAOPERATIVE FINDINGS: Viable male with face presentation, meconium PROCEDURE: Patient was taken to the OR and placed in supine position after her spinal anesthesia. She is prepared and draped in sterile fashion. Camp was placed for drainage of the bladder. Low transverse incision was made and carried down the level of the fascia. The fascial incision was made with knife and extended bilaterally with curved Giles scissors. The fascia was off the rectus muscles using sharp and blunt dissection. The rectus muscles are in the midline. The peritoneum was entered without incident. Bladder blade was placed in uterine segment was identified. A low transverse incision was made creating a bladder flap. Bladder blade was placed low transverse uterine incision was made with the knife and extended with fingertips. Palpation revealed a face presentation mentum posterior. The baby's head was repositioned and delivered vertex. The baby was delivered with some fundal pressure. Mouth and nose were suctioned free. The cord is doubly clamped and cut. Baby is passed off to the tree inspector in attendance. The placenta was manually extracted with trailing membranes. The uterus was externalized wrapped in a moist lap sponge. Uterine contents wiped free. Uterus was closed with a running locking layer of 0 chromic suture using the second layer to imbricate the first completing a double layer closure of the uterus. The serosa was closed with a running 2-0 chromic stitch. The pelvis was irrigated and suctioned free of fluid the uterus was replaced in the abdomen. The abdominal wall peritoneum was closed with running 2-0 chromic stitch. Fascia was closed with a running 0 Vicryl in 2 segments. Sanket's layer was brought together with 0 plain gut stitch and the skin was closed with running subcuticular 4-0 undyed Vicryl stitch. The wound was dressed mother and baby did well.
--- NOTE | 2018-10-04 16:26 | Warning Signs in Babies ---
VOD Warning Signs Datetime Report Generated by [facility]: 10/04/2018 16:26 VOD#[id number] -Warning Signs in Babies: Needs to be viewed. (10/04/2018 04:57:Lydia Byrne RN)
[2018-10-04] MEDS ORDERED: MEPERIDINE HCL/PF INJ 25 MG/1 ML DISP.SYRIN ONE (16:53)
--- NOTE | 2018-10-04 17:28 | Delivery Summary ---
Del Sum A-C Datetime Report Generated by CPN: 10/04/2018 17:28 DELIVERY PERSONNEL DELIVERY PERSONNEL: [id number] Delivery Doctor:: Amy Pena MD Anesthesiologist:: Aliyah Person MD QUALITY COMPLIANCE CONSULTANT:: Rylie Cuevas CRNA Labor and Delivery Nurse:: Tiara Mendoza RN Performance Consultant:: Tiara Mendoza RN Nursery Nurse:: Kathi Damon RN Student Observers:: James Coats [place] Head/INSURANCE AGENCY SALES MANAGER: ST Heena Chiseler Head/INSURANCE AGENCY SALES MANAGER: Estee Ernst, FIRMWARE ARCHITECT MATERNAL INFORMATION Delivery Anesthesia: Spinal Medications After Delivery: Pitocin Bolus-Please Comment; Pitocin Drip 20 Units/1000ml NSS Estimated Blood Loss (ml): 600 Maternal Complications: None LABOR SUMMARY EDC: 10/14/2018 00:00 No. Babies in Womb: 1 Attempted: No Labor Anesthesia: None LABOR INFORMATION Reason for Induction: Not Applicable Onset of Labor: 10/04/2018 09:00 Oxytocin: N/A Group B Beta Strep: negative Antibiotics # of Doses: 0 Antibiotics Time of Last Dose: 1444 Name of Antibiotic Given: Ancef 2 gm Steroids Given: None Reason Steroids Not Administered: Not Applicable MEMBRANES Membranes Rupture Method: Artificial Rupture of Membranes: 10/04/2018 15:10 Length of Rupture (hr): 0.02 Amniotic Fluid Color: Light Meconium Amniotic Fluid Amount: Small Amniotic Fluid Odor: Normal STAGES OF LABOR Stage 3 hr: 0 Stage 3 min: 1 Total Time in Labor hr: 6 Total Time in Labor min: 12 VAGINAL DELIVERY Episiotomy: None Laceration #1: None Laceration Extension #1: N/A Laceration Repair: Not Applicable Sponge Count Correct: N/A Sharps Count Correct: N/A CSECTION DELIVERY Primary Indication: Other Other Primary Indication: FACE PRESENTATION CSection Urgency: Emergency CSection Incidence: Primary Labor: Labor Elective: Nonelective CSection Incision: Lower Uterine Transverse BABY A INFORMATION Delivery Date/Time: 10/04/2018 15:11 Method of Delivery: Born in Route : No : N/A Forceps: N/A Vacuum Extraction: N/A Shoulder Dystocia : No PRESENTATION/POSITION BABY A Presentation: Cephalic Cephalic Presentation: Face Breech Presentation: FACE PLACENTA INFORMATION BABY A Placenta Delivery Time : 10/04/2018 15:12 Placenta Method of Delivery: Manual Removal Placenta Status: Delivered SCORES BABY A Heart Rate 1 min: >100 bpm Resp Effort 1 min: Good Cry Reflex Irritability 1 min: Cough or Sneeze or Pulls Away Muscle Tone 1 min: Active Motion Color 1 min: Blue/Pale Resuscitation Effort 1 min: Tactile Stimulation SCORE 1 MIN: 8 Heart Rate 5 min: >100 bpm Resp Effort 5 min: Good Cry Reflex Irritability 5 min: Cough or Sneeze or Pulls Away Muscle Tone 5 min: Active Motion Color 5 min: Body [place], Extremities Blue Resuscitation Effort 5 min: Tactile Stimulation SCORE 5 MIN: 9 INFANT INFORMATION BABY A Gestational Age at Delivery: 38.4 Gestational Status: Early Term- 37- 38.6 Weeks Infant Outcome : Liveborn Condition : Stable Infant Sex: Male (Annotations: Data stored by [facility] on behalf of user) IDENTIFICATION BABY A Verification Date/Time: 10/04/2018 15:35 ID Band Number: [id number] Mother's Name Verified: Yes Infant RN Verifying : CEdouard Layck RN, T. Wing RN WEIGHT/LENGTH BABY A Birthweight (gm): 3740 Infant Weight (lb): 8 Weight (oz): 4 Infant Length (in): 20.50 Length (cm): 52.07 CORD INFORMATION BABY A No. Cord Vessels: 3 Nuchal Cord : N/A Cord Blood Taken: No-Annotate Suction: None ASSESSMENT BABY A Skin to Skin: Yes BABY B INFORMATION : N/A
[2018-10-04] MEDS ORDERED: MORPHINE SULFATE 10 MG/ML INJ ONE (17:31)
[2018-10-04] MEDS: MORPHINE SULFATE 10 MG/ML INJ IV PRN ×2 (17:33→17:43)
[2018-10-04] MEDS: IBUPROFEN 800 MG TABLET PO SCH ×2 (19:41→23:46)
[2018-10-04] MEDS: DOCUSATE SODIUM 100 MG CAPSULE PO SCH (19:41)
[2018-10-04] MEDS: OXYCODONE-ACETAMINOPHEN 5-325 MG TABLET PO PRN (20:03)
[2018-10-04] MEDS: KETOROLAC TROMETHAMINE INJ/PF 30 MG/1 ML SDV IV SCH (22:15)
[2018-10-05] MEDS: IBUPROFEN 800 MG TABLET PO SCH ×3 (05:33→17:37)
[2018-10-05] MEDS: KETOROLAC TROMETHAMINE INJ/PF 30 MG/1 ML SDV IV SCH ×3 (05:46→21:08)
[2018-10-05 06:28] LABS: HEMATOCRIT 26.1 % (36.0-47.0); MEAN CORPUSCULAR HEMOGLOBIN 29.2 pg (27.0-33.4); MEAN CORPUSCULAR HGB CONC 33.8 g/dL (32.0-36.0); MEAN CORPUSCULAR VOLUME 86 fl (80-97); PLATELET COUNT 121 10^3/uL (150-450); RED BLOOD COUNT 3.02 10^6/uL (3.72-5.28); RED CELL DISTRIBUTION WIDTH 14.6 % (11.5-14.0); WHITE BLOOD COUNT 6.5 10^3/uL (4.0-10.5)
[2018-10-05 06:34] LABS: HEMOGLOBIN 8.8 g/dL (12.0-15.5)
[2018-10-05] MEDS: PRENATAL VITAMIN W DHA CAPSULE PO SCH (09:43)
[2018-10-05] MEDS: DOCUSATE SODIUM 100 MG CAPSULE PO SCH ×2 (09:43→17:37)
--- NOTE | 2018-10-05 09:52 | PDOC PROGRESS REPORT ---
Subjective-OB Progress Note for:: 10/05/18 - POD #1, doing well, no complaints. S/p Primary c- section for face presentation, A+, Rubella Immune, Physical Exam (OB) Vital Signs: Temp Pulse Resp BP Pulse Ox 98.3 F 89 16 125/77 100 10/05/18 08:35 10/05/18 08:35 10/05/18 08:35 10/05/18 08:35 10/05/18 08:35 Intake & Output 10/04/18 10/05/18 10/06/18 06:59 06:59 06:59 Intake Total 1250 Output Total 650 Balance 600 Weight 87 kg - General General Appearance: Appears well, Alert In distress: None - PIH/Pre-Eclampsia Clonus: Negative Headache: Absent Epigastric Pain: No Visual Changes: No - Dressing Removed: No - Opsite - scant sanguinous drainage noted & outlined Incision: Dressing - Lochia Lochia Amount: Scant < 10 ml Lochia Color: Rubra/Red - Abdomen Description: Tender, Soft, Round Hernia Present: No Fundal Description: Firm, Midline Fundal Height: u/u - u/2 - Respiratory Respiratory Status: No respiratory distress Breath sounds: Clear - Cardiovascular Rhythm: Regular Heart Sounds: Normal auscultation - Abdominal Inspection: Normal Distension: No distension Tenderness: Nontender Abdominal Notes: +bowel sounds - Genitourinary Lochia: Mild Genitourinary Note: voiding - Extremities Upper extremity: Normal inspection Lower extremities: Normal inspection - Neurological Cognition: Normal Orientation: AAOx4 - Psychological Associated symptoms: Normal affect, Normal mood - Skin Skin Temperature: Warm Skin Moisture: Dry Objective-Diagnostic Laboratory: 10/05/18 06:13 10/04/18 10/04/18 10/05/18 11:27 11:27 06:13 WBC 7.4 6.5 RBC 3.96 3.02 L Hgb 11.7 L 8.8 L D Hct 34.2 L 26.1 L MCV 86 86 MCH 29.5 29.2 MCHC 34.2 33.8 RDW 14.6 H 14.6 H Plt Count 153 121 L Seg Neutrophils % 78.0 Lymphocytes % 15.2 Monocytes % 6.2 Eosinophils % 0.2 Basophils % 0.4 Absolute Neutrophils 5.8 Absolute Lymphocytes 1.1 Absolute Monocytes 0.5 Absolute Eosinophils 0.0 Absolute Basophils 0.0 Blood Type A POSITIVE Antibody Screen NEGATIVE Assessment and Plan(PN) - Assessment and Plan (1) Face presentation of fetus Qualifiers: Fetus number: single or unspecified fetus Qualified Code(s): O32.3XX0 - Maternal care for face, brow and chin presentation, not applicable or unspecified Is this a current diagnosis for this admission?: Yes (2) Status post primary low transverse section Is this a current diagnosis for this admission?: Yes (3) Anemia, Is this a current diagnosis for this admission?: Yes - Time Spent with Patient Time with patient: Less than 15 minutes Smoking Education Provided: Over 3 minutes Medications reviewed and adjusted accordingly: Yes - Disposition Anticipated Discharge: Home Within: within 48 hours
[2018-10-05] MEDS: OXYCODONE-ACETAMINOPHEN 5-325 MG TABLET PO PRN ×2 (09:53→20:15)
[2018-10-05] MEDS: FERROUS SULFATE 325 MG TABLET PO SCH (10:46)
[2018-10-06] MEDS: IBUPROFEN 800 MG TABLET PO SCH ×2 (00:17→05:14)
[2018-10-06] MEDS: OXYCODONE-ACETAMINOPHEN 5-325 MG TABLET PO PRN (00:18)
[2018-10-06] MEDS: KETOROLAC TROMETHAMINE INJ/PF 30 MG/1 ML SDV IV SCH (05:15)
[2018-10-06] MEDS: DOCUSATE SODIUM 100 MG CAPSULE PO SCH (09:59)
[2018-10-06] MEDS: PRENATAL VITAMIN W DHA CAPSULE PO SCH (09:59)
[2018-10-06] MEDS: FERROUS SULFATE 325 MG TABLET PO SCH (10:00)
--- NOTE | 2018-10-06 10:29 | PDOC DISCHARGE SUMMARY ---
Final Diagnosis Discharge Date: 10/06/18 - POD #2, doing well, no complaints, desires to go home today. A+, Rubella Immune. - Final Diagnosis (1) Face presentation of fetus Is this a current diagnosis for this admission?: Yes (2) Status post primary low transverse section Is this a current diagnosis for this admission?: Yes (3) Anemia, Is this a current diagnosis for this admission?: Yes (4) Normal course Is this a current diagnosis for this admission?: Yes Discharge Data - Discharge Medication Home Medications: 95/Iron Fum/Folic/Dha [ + Dha Combo Pack] 1 tab PO DAILY 10/04/18 Reason(s) for Admission: Induction of Labor Procedures: Ultrasound Intrapartum Procedure(s): : Low Cervical, Transverse - [place] Data Baby 2 Male Home with Mother: Yes Complications: Yes - face presentation during labor - Diagnosis Test Laboratory: Temp Pulse Resp BP Pulse Ox 97.8 F 100 18 116/65 98 10/06/18 03:56 10/06/18 03:56 10/06/18 03:56 10/06/18 03:56 10/06/18 03:56 10/04/18 10/05/18 11:27 06:13 RBC 3.96 3.02 L Hgb 11.7 L 8.8 L D Hct 34.2 L 26.1 L - Discharge information/Instructions Discharge Activity: Activity As Tolerated, No Driving, No Lifting Over 10 Pounds, Pelvic Rest Discharge Diet: As Tolerated, Regular Disposition: HOME, SELF-CARE Follow up with: [facility] in: 1, Weeks
[2018-10-06 11:22] VITALS: BP 129/81
== END 2018-10-06 13:10 | disposition home or self-care (01) | DRG 788 ==
LOC: LC 10:25 → LR 10:46 → 2S 18:30
PROVIDERS: ADMIT Obstetrics & Gynecology; ATTEND Obstetrics & Gynecology
PROC: 10D00Z1 Extraction of Products of Conception, Low, Open Approach (ICD-10-PCS; principal; 2018-10-04)
PROC: 4A1HXCZ Monitoring of Products of Conception, Cardiac Rate, External Approach (ICD-10-PCS; 2018-10-04)
DX: O32.3XX0 Maternal care for face, brow and chin presentation, not applicable or unspecified (principal); O77.0 Labor and delivery complicated by meconium in amniotic fluid; Z37.0 Single live birth; Z86.32 Personal history of gestational diabetes; Z86.19 Personal history of other infectious and parasitic diseases; O99.02 Anemia complicating childbirth; D64.9 Anemia, unspecified; Z3A.38 38 weeks gestation of pregnancy
CPT/HCPCS: 1961; 36415; 85025; 85027; 86592; 86850; 86900; 86901; 94760; 94799; J0131; J0690; J1170; J1885; J2175; J2210; J2250; J2270; J2405; J2590; J2704; J3010; J3490; J7120

== ENCOUNTER 2018-10-08 21:05 | Emergency (ER) | payer SELFPAY ==
[2018-10-08 22:08] LABS: HEMATOCRIT 25.6 % (36.0-47.0); HEMOGLOBIN 8.6 g/dL (12.0-15.5); MEAN CORPUSCULAR HEMOGLOBIN 29.8 pg (27.0-33.4); MEAN CORPUSCULAR HGB CONC 33.4 g/dL (32.0-36.0); MEAN CORPUSCULAR VOLUME 89 fl (80-97); PLATELET COUNT 272 10^3/uL (150-450); RED BLOOD COUNT 2.87 10^6/uL (3.72-5.28); WHITE BLOOD COUNT 5.8 10^3/uL (4.0-10.5)
[2018-10-08 22:12] LABS: APPEARANCE,URINE SLIGHTLY-CLOUDY; BILIRUBIN,URINE NEGATIVE (NEGATIVE); COLOR,URINE YELLOW; GLUCOSE, URINE NEGATIVE (NEGATIVE); KETONES,URINE NEGATIVE (NEGATIVE); LEUKOCYTE ESTERASE,URINE NEGATIVE (NEGATIVE); NITRITE,URINE NEGATIVE (NEGATIVE); PROTEIN,URINE NEGATIVE (NEGATIVE); URINE SPECIFIC GRAVITY 1.012; UROBILINOGEN,URINE NEGATIVE mg/dL (<2.0)
[2018-10-08 22:19] LABS: ANION GAP 7 (5-19); BLOOD UREA NITROGEN 9 mg/dL (7-20); CARBON DIOXIDE 25 mmol/L (22-30); CHLORIDE 108 mmol/L (98-107); GLUCOSE 92 mg/dL (75-110); POTASSIUM 4.2 mmol/L (3.6-5.0)
[2018-10-08 22:33] LABS: ABSOLUTE MONOCYTES # (MANUAL) 0.5 10^3/uL (0.1-1.4); ABSOLUTE NEUTROPHILS# (MANUAL) 4.1 10^3/uL (1.7-8.2); BASOPHILS % (MANUAL) 1 % (0-2); EOSINOPHILS % (MANUAL) 3 % (0-6); LYMPHOCYTES % (MANUAL) 17 % (13-45); MONOCYTES % (MANUAL) 9 % (3-13); SEGMENTED NEUTROPHILS % (MAN) 70 % (42-78); TOTAL CELLS COUNTED 100
[2018-10-08 22:34] LABS: ANISOCYTOSIS SLIGHT; PLATELET COMMENT ADEQUATE; TOXIC GRANULATION SLIGHT
--- NOTE | 2018-10-08 23:16 | ER Document Report ---
ED General - General Chief Complaint: Post Problem Stated Complaint: POST PARDUM COMPLICATIONS Time Seen by Provider: 10/08/18 22:54 Primary Care Provider: LISBETH CASAREZ MD [ACTIVE STAFF] - Follow up as needed TRAVEL OUTSIDE OF THE [place] IN LAST 30 DAYS: No - HPI Notes: Patient is a 23-year-old female who presents to the emergency department for evaluation. She had an emergency on October 06. She states that since then her leg edema has only gotten worse. This morning she woke with a headache. She also states that she felt slightly short of breath with waking this morning, but that has improved. She denies any visual changes. She states she just feels weak. She is still urinating normally. Denies any abdominal pain. She states her vaginal bleeding is minimal at this time. She does have a history of preeclampsia with her first . She was induced at 35 weeks. She was followed closely during this but not diagnosed with preec lampsia at any time. She is currently breast-feeding. - Related Data Allergies/Adverse Reactions: No Known Allergies Allergy (Verified 10/08/18 21:06) Past Medical History - General Information source: Patient - Social History Smoking Status: Never Smoker Family History: Reviewed & Not Pertinent Patient has suicidal ideation: No Patient has homicidal ideation: No Renal/ Medical History: Denies: Hx Peritoneal Dialysis Past Surgical History: Reports: Hx Section - Immunizations Immunizations up to date: Yes Hx Diphtheria, Pertussis, Tetanus Vaccination: Yes Review of Systems - Review of Systems Constitutional: No symptoms reported EENT: No symptoms reported Cardiovascular: No symptoms reported Respiratory: See HPI Gastrointestinal: No symptoms reported Genitourinary: No symptoms reported Female Genitourinary: See HPI Musculoskeletal: No symptoms reported Skin: No symptoms reported Neurological/Psychological: No symptoms reported Physical Exam - Vital signs Vitals: Temp Pulse Resp BP Pulse Ox 98.8 F 97 15 136/97 H 100 10/08/18 21:18 10/08/18 21:18 10/08/18 21:18 10/08/18 21:18 10/08/18 21:18 - Notes Notes: Vital signs reviewed, please refer to chart. Patient is normocephalic, atraumatic. Pupils equal round, reactive to light. Neck is supple without meningismus. Heart is regular rate and rhythm. Lungs are clear to auscultation bilaterally. Abdomen is soft, nontender, normoactive bowel sounds throughout. Well bandaged wound from recent , low Pfannenstiel position. Bandage was left intact, no surrounding erythema noted. Extremities without cyanosis, clubbing. 3+ pitting edema bilaterally to lower extremities, no posterior calf tenderness. Peripheral pulses are equal. Skin is warm and dry. Small puncture isis noted on the spine consistent with recent spinal anesthesia. No surro unding erythema, induration, fluctuance. Patient is awake, alert, oriented x3. Cranial nerves II through XII are grossly intact without focal neurological deficits. Strength is plus 5 out of 5 bilateral upper and lower extremities. Reflexes symmetrical, sensation intact, gait within normal limits. Course - Re-evaluation Re-evalutation: 10/08/18 23:15 Patient presents to the emergency department for evaluation. On presentation her diastolic blood pressure is noted to be 97. Laboratory investigations were initially ordered through triage. She has no proteinuria. Hepatic function panel not been ordered, this was added. I did also order a chest x-ray to evaluate for any signs of pulmonary edema, as well as bilateral Dopplers to rule out DVT. We will continue to follow. 10/09/18 01:58 Patient remained stable throughout the course of her stay. Her LFTs are largely normal blood pressure came down to 126/84. Unfortunately we were unable to perform Dopplers of her bilateral lower extremities this evening. I will give her an outpatient order for this. Chest x-ray showed no signs of pulmonary edema. She remained neurologically stable. At this point she is strongly encouraged to call her OB tomorrow morning for follow-up. She supposed to be seen within a week of her , she is encouraged to try to be seen in the next 24-48 hours. Again she will be given the outpatient order for Doppler. She is told if she develops worsening or new concerning symptoms of any sort, including but certainly not limited to abdominal pain, visual changes, headache, she is to return to the ED immediately for reevaluation. She voiced understanding to this and was discharged. 10/09/18 01:59 - Vital Signs Vital signs: Temp Pulse Resp BP Pulse Ox 97.9 F 87 15 126/84 H 98 10/09/18 01:25 10/09/18 01:25 10/08/18 21:18 10/09/18 01:25 10/09/18 01:25 - Laboratory Result Diagrams: 10/08/18 21:51 10/08/18 21:51 Laboratory results interpreted by me: 10/08/18 10/08/18 10/08/18 21:51 21:51 21:51 RBC 2.87 L Hgb 8.6 L Hct 25.6 L RDW 15.0 H Chloride 108 H Calcium 8.0 L Direct Bilirubin AST Alkaline Phosphatase Total Protein Albumin Urine Blood SMALL H 10/08/18 23:50 RBC Hgb Hct RDW Chloride Calcium Direct Bilirubin 0.5 H AST 41 H Alkaline Phosphatase 167 H Total Protein 5.9 L Albumin 2.8 L Urine Blood Discharge - Discharge Clinical Impression: edema Condition: Stable Disposition: HOME, SELF-CARE Instructions: Post- Edema ([facility]) Additional Instructions: Rest, stay well-hydrated. If you develop visual changes, abdominal pain, worsened edema, difficulty breathing, or any other new or concerning symptoms, return immediately to the emergency department for reevaluation. Otherwise call your cover cutter for a follow-up appointment in 1-2 days. Have ultrasounds of your legs performed as ordered. Forms: Follow-Up Radiology Testing Referrals: LISBETH CASAREZ MD [ACTIVE STAFF] - Follow up as needed
--- NOTE | 2018-10-08 23:49 | RADIOLOGY REPORT (SQ) ---
EXAM DESCRIPTION: XR CHEST 2 VIEWS COMPLETED DATE/TME: 10/08/2018 23:04 CLINICAL HISTORY: 23 years, Female, mild dyspnea, post- COMPARISON: None. NUMBER OF VIEWS: 2 TECHNIQUE: 2 view chest LIMITATIONS: None. FINDINGS: Heart size normal. Lungs clear. No pneumothorax IMPRESSION: Negative chest copyright 2010 [employer]- All Rights Reserved
[2018-10-09 00:42] LABS: ALANINE AMINOTRANSFERASE 44 U/L (9-52); ALBUMIN 2.8 g/dL (3.5-5.0); ALKALINE PHOSPHATASE 167 U/L (38-126); ASPARTATE AMINO TRANSFERASE 41 U/L (14-36); BILIRUBIN,DIRECT 0.5 mg/dL (0.0-0.4); BILIRUBIN,TOTAL 0.6 mg/dL (0.2-1.3); TOTAL PROTEIN 5.9 g/dL (6.3-8.2)
[2018-10-09 02:35] VITALS: BP 140/86
== END 2018-10-09 02:36 | disposition home or self-care (01) ==
LOC: ER 21:05
DX: O12.05 Gestational edema, complicating the puerperium (principal)
CPT/HCPCS: 36415; 71046; 80048; 80076; 81001; 85025; 99283